=== PATIENT | female | born 1955 | race Caucasian/White ===

== ENCOUNTER 2025-05-22 11:32 | Outpatient (AMB) | payer MEDICARE, MEDICAID, SELFPAY ==
--- NOTE | 2025-05-22 11:34 | MHC.PC.OV ---
Vital Signs 05/22/25 11:43 Height 5 ft 5 in Weight 135 lb 6 oz BMI 22.5 BP 132/74 Blood Pressure Location Lt brachial Position Sitting Respiration 12 Pulse 72 Pulse Source Pulse Oximeter Temp 97.2 F Temp Source Oral Pulse Oximetry (%) 96 Oxygen Delivery Method Room Air Intake Visit Reasons: Asthma/Arthritis Intake Note: New patient to establish care. Patient is needs referral. Network Operations Technician Required: No Allergies tiotropium (From Spiriva) Adverse Reaction (Mild, Verified 05/22/25 11:51) GERD Medication List - Last Reconciled 05/22/25 by Sondra De La Fuente, [facility]- acyclovir 400 mg PO Q6H PRN albuterol sulfate 90 mcg/actuation inhalation budesonide-formoterol 160-4.5 mcg/actuation (Symbicort) 2 puffs inhalation BID meloxicam 7.5 mg PO DAILY omeprazole 20 mg PO DAILY Tobacco use date assessed: 05/22/25 Fall risk assessment: 2 + Falls in past year Last assessed Fall Risk: 05/22/25 Dental Screening Dental Screen Date: 05/22/25 Did you have a dental visit in the last 12 months?: Yes Did you have a dental problem in the last 6 months where you did not have access to dental care?: No Was dental information given to patient?: Patient has dentist HPI HPI Comments History of Present Illness Details 70 y/o F with OA, copd, former smoker, menopause, chronic GERD, MDD, AXEL SurgHx: FHx: 3 children healthy. SocHx: Lives byself. Has a car. Health Maintenance: See scanned preventative medicine assessment with personalized health plan and screening schedule. Colon: Mammo DEXA PAP Vaccines: tdap 2019 AAA screen EKG: [place] of Care: Pulm GI History of Present Illness - The patient is a 70-year-old female presenting to establish care and manage her chronic conditions, including COPD and osteoarthritis. - Previous PCP: [place] records pending - Longstanding COPD: require daily Symbicort and albuterol. Spiriva stopped due to GERD exacerbation. COPD exac, seen at [facility] 1 mo ago. HAs been w/o inhalers. - Reports chronic cough for 20 years attributed to COPD. - GERD well-controlled by omeprazole; history suggests ?? Naylor's esophagus. - Six-month history of breast pain, no skin changes or drainage. Last mammogram several years ago. Denies fhx of breast ca. - Osteoarthritis pain in hands and multiple joints, persists with meloxicam; brace use frequent to help wrist/hand pain - Anxiety and depression, scored positive on respective scales. Denies si/hi. counseling in past; declined meds or counseling today. - Periodic herpes simplex outbreaks managed with acyclovir. - Former smoker Review of Systems - Respiratory: Reports chronic cough, difficulty breathing, previous positive TB test. - Gastrointestinal: Reports GERD symptoms, not well controlled by omeprazole. - Musculoskeletal: Reports joint pain, primarily in hands, swelling. - Psychiatric: Reports anxiety and depression. - Integumentary/Breast: Reports breast pain, denies skin changes or drainage. - Reproductive: Denies family history of breast cancer, unknown paternal history. - Neurological: Denies changes in memory or cognition. - Skin: Reports herpes simplex outbreaks. - Social: Reports previous smoking history. Physical Exam General: Well developed, well nourished, in no acute distress. Appears stated age. Head: Normocephalic, atraumatic. Eyes: Pupils are equal, round and reactive to light and accommodation. Conjunctivae are clear. Vision grossly normal. Lungs: Diminished air flow noted, dry cough, no distress Heart: Regular rate and rhythm. No murmurs, click, rubs or gallops are noted. Pulses: Peripheral pulses are equal and palpable bilaterally. Extremities: No clubbing, cyanosis nor edema is noted. Psych: Mood and affect appropriate, though patient reports anxiety and depression. Results Pending Discussion Notes I discussed with the patient her current health issues and potential management strategies. We went over her needs for effective control of COPD, noting her difficulty with Spiriva due to digestive side effects. We discussed a potential therapeutic option, Trelegy, to simplify her treatment to one inhaler howveer this was denied by insurance. Therefore will prescribe Incruse + Symbicort and Albuterol. We reviewed her osteoarthritis needing better management, referral to rheumatology,ok to cont therapy with meloxicam. Anxiety and depression were noted, but she declined additional counseling services at this time. Diagnostic mammogram was recommended due to breast pain history, with potential for further imaging pending results. I recommended follow-up appointments to address medication refills and further management, as well as referrals for GI and pulmonology. Patient was given time to ask questions. All questions were answered to their satisfaction. Assessment and Plan 1. Chronic Obstructive Pulmonary Disease (COPD) - Trelegy denied - Continue Symbicort, albuterol, start incruse - Refer to pulmonology; former smoker, consider lung ca screen. 2. Gastroesophageal Reflux Disease (GERD) - Continue omeprazole - Refer to Gastroenterology ?? barretts 4. Osteoarthritis - Refer to rheumatology - cont meloxicam 5. Breast Pain bilat - Schedule diagnostic mammogram - Monitor symptoms 6. Anxiety and Depression - Screening positive, declined intervention 7. Herpes Simplex - Prescribe acyclovir PRN Check baselie labs today, get records from previous PCP RTO 4-6 weeks to fu on cOPD management and for sAWV. Patient Instructions - Continue using prescribed inhalers daily for COPD and asthma. - Take omeprazole as directed for GERD and monitor symptoms. - Schedule and attend mammogram to check for breast health. - Use meloxicam for pain management in osteoarthritis; consider wearing brace if needed. - Take acyclovir as prescribed for herpes outbreaks. - Follow referral to Gastroenterology and pulmonology when contacted. - Discuss therapy with a work measurement engineer if referred. - Aim to attend follow-up appointment for overall health assessment. - Seek medical help if breathing or other symptoms worsen. Consent Patient was informed and verbally consented to the use of an ambient scribe for clinic note documentation during this visit. Total time spent caring for the patient today was 45 minutes. This includes time spent before the visit reviewing the chart, time spent during the visit, and time spent after the visit on documentation, reviewing laboratory results, diagnostic imaging, medications, performing a medically necessary evaluation, counseling on diagnoses, care coordination, ordering appropriate tests, ordering appropriate medications, review of tests performed by other providers, reporting test results with the patient, communication with other healthcare providers. [facility] Medical History (Updated 05/22/25 @ 12:16 by SAUL Polanco) Anxiety Arthritis Asthma COPD (chronic obstructive pulmonary disease) Diverticulitis Eczema Edema GERD (gastroesophageal reflux disease) Hx of mammogram (~2022) Memory loss No pertinent family history Psoriasis Swelling Surgical History (Updated 05/22/25 @ 11:49 by Anna Redman MA) H/O: hysterectomy History of appendectomy Social History (Updated 05/22/25 @ 11:42 by Anna Redman MA) Household Members: None Both parents involved: No Caregiver staying overnight: No Housing: Apartment Are you a primary director of home care hospice to a significant other at home: No Do you presently have visiting nurse or other home services: No 75 years or older and lives alone: No Alcohol intake: current Alcohol intake frequency: a few times a month Patient Tobacco Use Status: Never used Tobacco e-Cigarette/Vaping Use: Never Used Second Hand Smoke Exposure: No Substance Use Type: Marijuana Current occupational status: retired Cognitive needs: Yes Hearing needs: No Vision needs: Yes (wear glasses) Questionnaire PHQ-9 Over the last 2 weeks, how often have you been bothered by any of the following problems? 1. Little interest or pleasure in doing things: nearly every day 2. Feeling down, depressed, or hopeless: not at all 3. Trouble falling or staying asleep, or sleeping too much: nearly every day 4. Feeling tired or having little energy: nearly every day 5. Poor appetite or overeating: not at all 6. Feeling bad about yourself - or that you are a failure or have let yourself or your family down: not at all 7. Trouble concentrating on things, such as reading the newspaper or watching television: not at all 8. Moving or speaking so slowly that other people could have noticed. Or the opposite - being so fidgety or restless that you have been moving around a lot more than usual: not at all 9. Thoughts that you would be better off or of hurting yourself in some way: not at all Total score: 9 Depression Screening Interpretation: Positive Depression Screening Follow-up: Existing condition and Declines treatment Depression Screening Done: Yes 26062 - PHQ-9 Billing: Patient declined-do not bill Source: Developed by Drs. Jose Walter, Elizabeth Mina, Michael Jones and colleagues, with an educational rissa from [employer]. Thrive Questionnaire Date Thrive assessed: 05/22/25 I am a: Patient What is your living situation today?: I have a steady place to live Within the past 12 months, did the food you bought not last and you didn't have the money to get more?: Never true Within the past 12 months, did you worry whether your food would run out before you got money to buy more?: Never true Do you have trouble paying for medicines?: No Do you have trouble getting transportation to medical appointments?: No Do you have trouble paying your heating and electricity bill?: No Do you have trouble taking care of your child, family member or friend?: No Do you have trouble with day-to-day activities such as bathing, preparing meals, shopping, managing finances, etc.?: No Are you currently unemployed and looking for a job?: No Are you interested in more education?: No Please select the resources that you would like help with: None Currently or been in a relationship where the following occur: No concerns reported THRIVE Score: 0 AUDIT C Alcohol Use Questionnaire (AUDIT-C) 1. How often do you have a drink containing alcohol?: 2-3 times a week 2. How many drinks containing alcohol do you have on a typical day when you are drinking?: 1 or 2 3. How often do you have six or more drinks on one occasion?: Never Total Score: 3 Score Reviewed/Action Taken: Yes AXEL-7 AMB Questionnaire AXEL-7 Date AXEL - 7 assessed: 05/22/25 Feeling nervous, anxious, or on edge: 1 = Several days Not being able to stop or control worryin = Nearly every day Worrying too much about different things: 1 = Several days Trouble relaxin = Several days Being so restless that it is hard to sit still: 1 = Several days Becoming easily annoyed or irritable: 3 = Nearly every day Feeling afraid as if something awful might happen: 2 = More than half the days Total AXEL-7 score (0-4 normal; 5-9 mild; 10-14 moderate; 15-21 severe): 12 Source: Developed by Drs. Jose Walter, Elizabeth Mina, Michael Jones and colleagues, with an educational rissa from [employer]. AXEL-7 Assessment Billing AXEL-7 Assessment Tool: AXEL-7 Assessment 61192 ACT Questionnaire In the past 4 weeks, how much of the time did your asthma keep you from getting as much done at work, school or at home?: None of the time During the past 4 weeks, how often have you had shortness of breath?: Not at all During the past 4 weeks, how often did your asthma symptoms wake you up at night or earlier than usual in the morning?: Not at all During the past 4 weeks, how often have you had to use your rescue inhaler or nebulizer medication?: Not at all How would you rate your asthma control during the past 4 weeks?: Completely controlled ACT Interpretation: Negative Score: 25 Physical exam (Primary Care) Vital Signs: Last Vital Signs Temp 97.2 F 05/22/25 11:43 Pulse 72 05/22/25 11:43 Resp 12 05/22/25 11:43 BP 132/74 05/22/25 11:43 Pulse Ox 96 05/22/25 11:43 Oxygen Delivery Method Room Air 05/22/25 11:43 BMI result Body Mass Index 22.5 Tobacco/Smoking Status: Tobacco use Status Tobacco use date assessed 05/22/25 05/22/25 11:40 Patient Tobacco Use Status Never used Tobacco 05/22/25 11:42 e-Cigarette/Vaping Use Never Used 05/22/25 11:42 PHQ-9: PHQ-9 Score PHQ-9: Total score 9 05/22/25 11:40 Depression Screening Interpretation: Positive Depression Screening Follow-up: Existing condition and Declines treatment Thrive Assessment: Date of Thrive Assessment Date Thrive assessed 05/22/25 05/22/25 11:40 Currently or been in a relationship where the following occur: No concerns reported Coding Level of Care Code New Pt Level 4 (89756) Complex EM visit Add On G2211 Diagnoses Encounter to establish care with new provider Z76.89 Former smoker Z87.891 Panlobular emphysema J43.1 COPD type: emphysema Emphysema type: panlobular Polyarthralgia M25.50 Mastalgia in female N64.4 Chronic GERD K21.9 Laboratory exam ordered as part of routine general medical examination Z00.00 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 Additional Codes Asthma Control Questionnaire - ACT Interpretation: Negative ([id number]) AXEL-7 Assessment Billing - AXEL-7 Assessment Tool: AXEL-7 Assessment 83034 ([id number]) Assessment & Plan Assessment & Plan (1) Encounter to establish care with new provider: Code(s): Z76.89 - Persons encountering health services in other specified circumstances (2) Former smoker: Code(s): Z87.891 - Personal history of nicotine dependence Category: Medical (3) COPD (chronic obstructive pulmonary disease): Code(s): J44.9 - Chronic obstructive pulmonary disease, unspecified Category: Medical Qualifiers: COPD type: emphysema Emphysema type: panlobular Qualified Code(s): J43.1 - Panlobular emphysema (4) Polyarthralgia: Code(s): M25.50 - Pain in unspecified joint Category: Medical (5) Mastalgia in female: Code(s): N64.4 - Mastodynia Category: Medical (6) Chronic GERD: Code(s): K21.9 - Gastro-esophageal reflux disease without esophagitis Category: Medical (7) Laboratory exam ordered as part of routine general medical examination: Code(s): Z00.00 - Encounter for general adult medical examination without abnormal findings Category: Medical (8) HSV-2 infection: Code(s): B00.9 - Herpesviral infection, unspecified Category: Medical Plan , Orders: Orders Complete Blood Count no Diff Today Z00.00 - Encounter for general adult medical examination without abnormal findings Lipid Panel Today Z00.00 - Encounter for general adult medical examination without abnormal findings Vitamin D 25-OH Total Today Z00.00 - Encounter for general adult medical examination without abnormal findings Hepatitis A,B,C Profile Today Z00.00 - Encounter for general adult medical examination without abnormal findings HIV Ab/Ag Today Z00.00 - Encounter for general adult medical examination without abnormal findings MM tomosynthesis diagnostic BI Today N64.4 - Mastodynia Comprehensive Met. Panel Today Z00.00 - Encounter for general adult medical examination without abnormal findings Microalbumin, Random (w Creat) Today Z00.00 - Encounter for general adult medical examination without abnormal findings TSH reflex Free T4 Today Z00.00 - Encounter for general adult medical examination without abnormal findings Vitamin B12 and Folate Today Z00.00 - Encounter for general adult medical examination without abnormal findings Referrals Pulmonology Referral J44.9 - Chronic obstructive pulmonary disease, unspecified, Z87.891 - Personal history of nicotine dependence Rheumatology Referral M25.50 - Pain in unspecified joint Gastroenterology Referral K21.9 - Gastro-esophageal reflux disease without esophagitis, Z12.11 - Encounter for screening for malignant neoplasm of colon Medications: New budesonide-formoterol 160-4.5 mcg/actuation (Symbicort) 2 puffs inhalation BID 10.2 grams 12RF omeprazole 20 mg PO DAILY 90 caps 2RF umeclidinium 62.5 mcg/actuation (Incruse Ellipta) 1 inh inhalation BEDTIME 30 ea 12RF meloxicam 7.5 mg PO DAILY 90 tabs 2RF Changed From albuterol sulfate 90 mcg/actuation inhalation To albuterol sulfate 90 mcg/actuation 2 inhalations inhalation Q6H 6.7 grams 2RF From acyclovir 400 mg PO Q6H PRN To acyclovir 400 mg PO Q6H PRN 40 tabs 1RF outbreak 10 days Patient Instructions: Walk-In Care (Urgent Care): We Make it Easy Walk-in for urgent medical issues such as: ? Seasonal Allergies ? Insect Bites ? Cough ? Diarrhea ? Acute Asthma Attacks ? Back, Knee or Joint Pain ? Ear Infection ? Fever without a Rash ? Headaches ? Nausea ? [place] [facility], Rash or Skin Irritation ? Sore Throat ? Sports Physicals ? Vomiting Most insurances are accepted. Patients do not need to be part of the [facility] to seek care at the walk-in clinic. Locations [facility] , [place] [address] ? [phone] [facility] Walk-In Care in [place] provides services to ages 18 and over. Open Monday-Monday: 7 a.m. to 5 p.m. and Monday: 9 a.m. to 3 p.m.* *Hours may vary due to staffing availability. To confirm Walk-In Care hours in [place], please call [phone]. [address] [place] [address] ? [phone] [facility] Walk-In Care in [place] provides services to ages 12 and over. Open Monday-Monday: 8 a.m. to 5 p.m. Hours may vary due to staffing availability. To confirm Walk-In Care hours in [place], please call [phone]. LABORATORY SERVICES: [facility] ? Primary Location [address] [place] [address] Monday through Monday 6:00 AM ? 5:00 PM Monday 7:00 AM ? 11:00 AM* [phone] The [facility] is centrally located near the front entrance of the [facility] for easy outpatient access. Convenient parking is provided for outpatients. *Hours may vary due to staffing availability. To confirm Laboratory hours for any location, please call [phone]. Offsite Location For your convenience, we offer offsite laboratory draw stations at the following locations: [address] [facility], [place] ? [facility] [address], [address], [place] Monday through Monday 7:30 AM ? 1:00 PM* [phone] *Hours may vary due to staffing availability. To confirm Laboratory hours for any location, please call [phone]. [place] ? [facility] [address] [facility], [place] Monday through Monday 6:00 AM ? 3:30 PM* Monday 6:30 AM ? 3 PM* [phone] *Hours may vary due to staffing availability. To confirm Laboratory hours for any location, please call [phone] [place] [address] Monday through Monday 7:30 AM ? 4:00 PM* [phone] *Hours may vary due to staffing availability. To confirm Laboratory hours for any location, please call [phone] [place] [address] Monday through 9:00 AM ? 4:00 PM* *Hours may vary due to staffing availability. To confirm Laboratory hours for any location, please call [phone]. Appointments are not necessary. Walk-ins are welcome. Like all the departments throughout the [place], our Lab undergoes frequent reviews to ensure the quality and accuracy of test results, and our staff takes special pride in its status as a nationally accredited facility. Patient Portal: [facility] ONE PATIENT. ONE RECORD. BETTER CARE. [facility] has a fully integrated, cutting-edge mobile electronic health information system that has revolutionized the way we care for our patients and manage our organization. This system improves communication and coordination enabling us to provide safe, higher-quality care, and an overall positive experience for staff and patients. Our first priority, as always, is to deliver the highest quality care possible. The system is running in the background supporting that priority. This portal is for all [facility] services and practices. If you are experiencing any technical difficulties with enrolling or logging into the Patient Portal please complete the [facility] Patient Portal Technical Support Form. [facility] now offers a new secure on-line interactive tool for patients to review their health information ? ?Patient Portal. This interactive web portal will enable patients and their families to take an active role in their care by providing easy, secure access to their health information via the internet. The Patient Portal provides patients with instant access to their health information, including laboratory results, medications, allergies, demographic information, visit history, and more. In addition to managing their own care, parents and health care proxies with authorized consent will appreciate the ability to access the records of those individuals for whom they provide care. Please note: if you wish to gain access (Proxy) to another patient?s portal, you will be required to come to the Medical Records Department in person at [facility]. Both the patient giving proxy access and the proxy will need to provide photo identification and complete the appropriate authorization. The Patient Portal also allows track their appointments online. The [facility] Patient Portal also saves patients time by allowing them to submit updates to their demographic and contact information prior to their visits. Portal email notifications will also alert patients to any new activity on their portal, such as test results and new appointments. In order to initially enroll in the [facility] Patient Portal, you will need to enter some required information including the following: your [facility] Medical Record number your personal home email address name date of Please note: In order to enroll in the [facility] Patient Portal, we need to have your email address on file in your electronic medical record. ?The email address needs to be specific for one person (yourself) in order for your Portal enrollment to be successful. ?You can update your email address in person with our Registration staff when you are registering for a hospital visit. ?Otherwise, you will need to come to the Health Information Management (Medical Records) Department at [facility]. ?We are open from Monday ? Monday from 7:30 a.m. ? 4:30 p.m. ?You will be required to present a photo id. Once you have successfully enrolled in the Patient Portal, you will receive a one-time user id and password for the Portal, sent to your email address. ?This will allow you to log into the Patient Portal within 99 hrs and reset your own logon id and password, and define personal security questions. ?Once your permanent login and password have been set, you can log into the [facility] Patient Portal at any time via the blue button above or from the Portal Logon button on any page of the [facility] website. [facility] encourage all of our patients to enroll in Patient Portal as it presents a valuable opportunity for patients and their families to actively participate in their care and stay healthy Welcome to [facility]. ?We look forward to working with you.
[2025-05-22 11:43] VITALS: BP 132/74; PULSE 72; RESP 12; TEMP 36.2; O2SAT 96; BMI 22.5
--- OUTSIDE RECORDS SUMMARY | 2025-05-22 13:15 | XMS_ITS | Clinical Summary ---
Author Organization [employer] Address [address] [place] [address] 7[address] [place] [address] Care Team Providers Care Shirt Operator Name Role Phone Ann Marie Gallego Unavailable Unavailable Allergies No known active allergies Medications meloxicam (Mobic) 7.5 MG tablet Take 1 tablet by mouth Once per day. 10/30/2024 Active omeprazole (PriLOSEC) [address] capsule Take 20 mg by mouth Once per day. Active Active Problems Problem Noted Date Diagnosed Date Affective psychosis, bipolar 12/25/2024 Chronic obstructive pulmonary disease 12/25/2024 Dissociative amnesia 12/25/2024 Gastroesophageal reflux disease 12/25/2024 Combined forms of age-related cataract of both e yes 12/25/2024 Obstructive sleep apnea of adult 12/25/2024 PTSD (post-traumatic stress disorder) 12/25/2024 Rheumatoid arthritis involving multiple sites Social History Tobacco Use Types Packs/Day Years Used Date Smoking Tobacco: Former Cigarettes Smokeless Tobacco: Never Tobacco Cessation:Counseling Given: Not Answered Alcohol Use Standard Drinks/Week Comments Never 0 (1 standard drink = 0.6 oz pur e alcohol) Comments Unknown Sex and Gender Information Value Date Recorded Sex Assigned at Female 12/03/2024 10:16 AM EDT Legal Sex Female 8:38 PM EDT Gender Identity Female 12/03/2024 10:16 AM EDT Sexual Orientation Something else 12/03/2024 10 :16 AM EDT Last Filed Vital Signs Vital Sign Reading Time Taken Comments Blood Pressure 120/80 12/25/2024 9:31 AM EDT Pulse - - Temperature 36.1 C (97 F) 12/25/2024 9:31 AM EDT Respiratory Rate - - Oxygen Saturation - - Inhaled Oxygen Concentration - - Weight - - Height - - Body Mass Index - - Plan of Treatment Upcoming Encounters Date Type Department Care Team (Late st Contact Info) Description 05/28/2025 10:10 AM EDT Office Visit [facility] DENTAL [address] [place] [address] Binh Childress Jr., DMD [address] [place] [address] 06/10/2025 10:10 AM EDT Office Visit [facility] DENTAL [address] [place] [address] Belen Guardado Health Maintenance Due Date Last Done Comments CT Colonography 1957 Colonoscopy 1957 Colorectal Cancer Screening 1957 Depression Screening 1957 FIT DNA/Cologuard 1957 FIT 1957 FOBT 1957 SDOH Screening 1957 Sigmoidoscopy 1957 Alcohol/Substance Use Screening 1969 Hepatitis C Screening 1975 Zoster Vaccines (1 of 2) 2007 RSV Patients and Patients Aged 60 years or older (1 - Risk 60-74 years 1-dose series) 2017 Pneumococcal Vaccine: 50+ Years (2 of 2 - PCV) 09/27/2018 09/27/2017 Mammogram 03/06/2021 03/06/2019 COVID-19 Vaccine ( - season) 2025 Influenza Vaccine (#1) 2025 8, 07/06/2017, 07/05/2017, Additional history exists Dental Oral Exam 06/06/2025 12/03/2024 Dental Prophylaxis 06/06/2025 12/03/2024 Dental X-Ray: Bitewings 12/04/2025 12/03/2024 Tobacco Screening 12/25/2025 12/25/2024 Dental X-Ray: Full Mouth 12/05/2027 12/03/2024 DTaP/Tdap/Td Vaccines (2 - Td or Tdap) 05/14/2029 05/14/2019 HIB Vaccines Aged Out No longer eligi ble based on patient's age to complete this topic HPV Vaccines Aged Out No longer eligi ble based on patient's age to complete this topic Hepatitis A Vaccines Aged Out No long er eligible based on patient's age to complete this topic Hepatitis B Vaccines Aged Out No long er eligible based on patient's age to complete this topic IPV Vaccines Aged Out No longer eligi ble based on patient's age to complete this topic Meningococcal B Vaccine Aged Out No l onger eligible based on patient's age to complete this topic Meningococcal Vaccine Aged Out No kayla da eligible based on patient's age to complete this topic RSV under 20 months Aged Out No longe r eligible based on patient's age to complete this topic Rotavirus Vaccines Aged Out No longer eligible based on patient's age to complete this topic Procedures Procedure Name Priority Date/Time Associated Diagnosis Comments Full PROPHYLAXIS - ADULT Routine 12/03/2024 10:20 AM EDT INTRAORAL - COMPLETE SERIES OF RADIOGRAPHIC IMAGES Routine 12/03/2024 10:20 AM EDT PERIODIC ORAL EVALUATION - ESTABLISHED PATIENT Routine 12/03/2024 10:20 AM EDT MAMMOGRAM GENERIC Routine 03/06/2019 12: 00 AM EDT from Last 3 Months or Most Recently Relevant to Health Maintenance Results * MAMMOGRAM DIGITAL WINIFRED SCREENING: [facility] (03/06/2019 12:00 AM EDT) Anatomical Region Laterality Modality Breast Bilateral Mammography 03/06/2019 Narrative 03/06/2019 12:00 AM EDT Refer to [facility] for result details Legacy Procedure: MAMMOGRAM DIGITAL WINIFRED SCREENING: [facility] Procedure Note Provider, Historical, - 01/12/2023 Refer to Fove for result details Legacy Procedure: MAMMOGRAM DIGITAL WINIFRED SCREENING: [facility] Historical Provider IMG BI PROCEDURES Final R esult from Last 3 Months or Most Recently Relevant to Health Maintenance Insurance [facility] DUAL COM[facility]TE [facility] MEDICAID STAND ADULT DENTAL - HSN FULL (MEDICAID) [facility] [place] [address] Care Teams Shirt Operator Relationship Specialty Start Date End Date Ann Marie Gallego [facility] Navigator 10/15/24
== END 2025-05-22 12:19 | disposition home or self-care (01) ==
LOC: HO.HMCFM 11:33
PROVIDERS: PCP Nurse Practitioner Family; Visit Provider Nurse Practitioner Family
DX: Z76.89 Persons encountering health services in other specified circumstances (principal); Z87.891 Personal history of nicotine dependence; J43.1 Panlobular emphysema; M25.50 Pain in unspecified joint; N64.4 Mastodynia; K21.9 Gastro-esophageal reflux disease without esophagitis; Z00.00 Encounter for general adult medical examination without abnormal findings; B00.9 Herpesviral infection, unspecified

== ENCOUNTER → 2025-05-22 11:32 | Outpatient (BNVA) | payer OTHER, SELFPAY | PROVIDERS: PCP Nurse Practitioner Family; Visit Provider Nurse Practitioner Family | DX: Z00.00 Encounter for general adult medical examination without abnormal findings (principal); J44.9 Chronic obstructive pulmonary disease, unspecified; K21.9 Gastro-esophageal reflux disease without esophagitis; R05.3 Chronic cough; F41.9 Anxiety disorder, unspecified; F32.A Depression, unspecified; N64.4 Mastodynia; B00.9 Herpesviral infection, unspecified; Z76.89 Persons encountering health services in other specified circumstances; Z87.891 Personal history of nicotine dependence; J43.1 Panlobular emphysema; M25.50 Pain in unspecified joint | CPT/HCPCS: 96127; 96160; 99202 ==

== ENCOUNTER 2025-06-13 11:58 | Outpatient (REF) | payer MEDICARE, SELFPAY ==
--- OUTSIDE RECORDS SUMMARY | 2025-06-13 13:44 | XMS_ITS | Clinical Summary ---
Author Organization [employer] Address [address] [facility] 7t [place] [address] Care Team Providers Care Ships Or Barges Loader Name Role Phone Ann Marie Gallego Unavailable [...] disorder) 12/25/2024 Rheumatoid arthritis involving multiple sites Encounters Date Type Department Care Team Description 06/03/2025 11:30 AM EDT Office Visit [facility] [address] [place] [address] Del Velasquez, OD PVD (posterior vitreous detachment), left eye (Primary Dx); Peripheral drusen of both eyes; Hypertensive retinopathy of both eyes 06/03/2025 Travel 05/28/2025 10:20 AM EDT Office Visit [facility] DENTAL [address] [place] [address] Binh Childress Jr., DMD from Last 3 Months Social History Tobacco Use Types Packs/Day Years [...] Sign Reading Time Taken Comments Blood Pressure 133/86 05/28/2025 10:14 AM EDT Pulse 82 05/28/2025 10:14 AM EDT Temperature 36.1 C (97 F) 12/25/2024 9:31 AM EDT Respiratory Rate - - Oxygen Saturation - - Inhaled Oxygen Concentration - - Weight - - Height - - Body Mass Index - - Plan of Treatment Upcoming Encounters Date Type Department Care Team (Late st Contact Info) Description 06/19/2025 9:20 AM EDT Office Visit [facility] DENT[facility] [address] [place] [address] Belen Guardado 06/25/2025 10:00 AM EDT Office Visit [facility] [address] [place] [address] Del Velasquez, OD [address] [place] [address] Health Maintenance Due Date Last Done Comments [...] Procedure Name Priority Date/Time Associated Diagnosis Comments FUNDUS PHOTOS - OS - LEFT EYE Routine 06/03/2025 PVD (posterior vitreous detachment), left eye Peripheral drusen of both eyes Hypertensive retinopathy of both eyes CASE PRESENTATION, DETAILED AND EXTENSIVE TREATMENT PLANNING Routine 05/28/2025 10:20 AM EDT 25 MIFL RESIN-BASED COMPOSITE - 4 OR MORE SURFACES (ANTERIOR) Routine 05/28/2025 10:20 AM EDT Full PROPHYLAXIS - ADULT Routine 12/03/2024 10:20 AM EDT INTRAORAL - COMPLETE SERIES OF RADIOGRAPHIC IMAGES Routine 12/03/2024 10:20 AM EDT PERIODIC ORAL EVALUATION - ESTABLISHED PATIENT Routine 12/03/2024 10:20 AM EDT MAMMOGRAM GENERIC Routine 03/06/2019 12: 00 AM EDT from Last 3 Months or Most Recently Relevant to Health Maintenance Results * (ABNORMAL) Fundus Photos - OS - Left Eye (06/03/2025) Del Velasquez OD OPHTH PHOTOGRAPHY Final Result * MAMMOGRAM DIGITAL WINIFRED SCREENING: [facility] (03/06/2019 12:00 AM EDT) Anatomical Region Laterality Modality Breast Bilateral Mammography 03/06/2019 Narrative 03/06/2019 12:00 AM EDT Refer to Fovea for result details Legacy Procedure: MAMMOGRAM [facility]ITAL [facility] Procedure Note Provider, Rolan, - 01/12/2023 Refer to Fovea for result details Legacy Procedure: MAMMOGRAM DIGITAL WINIFRED [facility]CREENING[facility] Historical Provider IMG BI PROCEDURES Final R esult from Last 3 Months or Most Recently Relevant to Health Maintenance Insurance [facility] DUAL COMPLETE [place]ENTAL[place]ICAID STAND ADULT DENTAL - HSN FULL (MEDICAID) [facility] DUAL COMPLETE [facility] STANDARD Care Teams Ships Or Barges Loader Relationship Specialty Start Date End Date Ann Marie Gallego [facility] Navigator 10/15/24 [address] [place] [address] Primary Care Provider 06/03/25
[2025-06-13 14:36] LABS: Hematocrit 39.6 % (37.0-47.0); Hemoglobin 13.1 g/dl (12.0-16.0); Mean Corpuscular HGB Conc 33.1 g/dl (31.0-35.0); Mean Corpuscular Hemoglobin 29.6 pg (27.0-33.0); Mean Corpuscular Volume 89.6 fL (80.0-98.0); NRBC Abs Auto 0.000 X10*3/uL (0.0-0.012); NRBC Pct Auto 0.0 /100WBC (0.0-0.2); Platelet Count 302 X10*3/uL (160-400); Red Blood Count 4.42 X10*6/uL (4.20-5.50); White Blood Count 5.3 X10*3/uL (4.8-10.8)
[2025-06-13 15:07] LABS: Alanine Aminotransferase 19 U/L (0-31); Albumin Level 4.5 g/dL (3.5-5.0); Alkaline Phosphatase 61 U/L (39-117); Anion Gap 11 (12-20); Aspartate Amino Transferase 22 U/L (5-31); Blood Urea Nitrogen 13 mg/dL (9-16); Calcium 9.0 mg/dL (8.4-10.2); Carbon Dioxide 27 mmol/L (22-29); Chloride 107 mmol/L (96-108); Cholesterol 192 mg/dL (<200); Estimated Glomerular Filt Rate > 60; HDL Cholesterol 70 mg/dL (>40); Potassium 3.5 mmol/L (3.3-5.1); Sodium 141 mmol/L (135-145); Total Protein 7.1 g/dL (6.5-8.0); Triglycerides 62 mg/dL (<150)
[2025-06-13 15:11] LABS: Microalbum/Creatinine Ratio Ur 40.5 ug/mg cr (<30)
[2025-06-13 15:20] LABS: Folate 12.9 ng/mL (> or = 4.0); Vitamin B12 814 pg/mL (200-900)
[2025-06-16 04:22] LABS: HBS Num1 136.63 mIU/mL (0-7.99); HBc Num1 0.16 S/CO (0.00-0.79); HBsAGNum1 0.34 S/CO (0.00-0.99); HIV Num 1 0.04 S/CO (0.00-0.99); Hepatitis A Antibody IgM 0.13 Index (0-0.79); Hepatitis B Surface Antigen Negative (Negative); ~HepC Num1 0.12 S/CO (0.00-0.79); ~Hepatitis A Antibody IgM Nonreactive (Nonreactive); ~Hepatitis B Surface Antibody REACTIVE (Nonreactive); ~Hepatitis C Antibody Nonreactive (Nonreactive)
== END 2025-06-13 11:59 | disposition home or self-care (01) ==
LOC: HO.WFDLDS 11:58
PROVIDERS: Visit Provider Nurse Practitioner Family
DX: Z00.00 Encounter for general adult medical examination without abnormal findings (principal); Z11.4 Encounter for screening for human immunodeficiency virus [HIV]; Z13.29 Encounter for screening for other suspected endocrine disorder; Z13.6 Encounter for screening for cardiovascular disorders; Z13.21 Encounter for screening for nutritional disorder
CPT/HCPCS: 36415; 80053; 80061; 82043; 82306; 82570; 82607; 82746; 84443; 85027; 86704; 86706; 86709; 86803; 87340; 87389

== ENCOUNTER 2025-06-24 11:23 | Outpatient (REF) | payer MEDICARE, SELFPAY ==
--- OUTSIDE RECORDS SUMMARY | 2025-06-19 09:20 | XMS_ITS | Encounter Summary ---
Author Organization [employer] Address [address] [place] [address] [address]t h Floor [place] [id number] Care Team Providers Care Host Coordinator Name Role Phone Ann Marie Gallego Unavailable Unavailable Reason for Visit * Reason Comments Routine Cleaning Dental Exam Encounter Details Date Type Department Care Team (Late st Contact Info) Description 06/19/2025 9:20 AM EDT Office Visit [facility] DENTAL [address] [place] [address] Belen Guardado Encounter for dental examination (Primary Dx); Disturbances of tooth formation Social History Tobacco Use Types Packs/Day Years Used Date Smoking Tobacco: Former Cigarettes Smokeless Tobacco: Never Alcohol Use Standard Drinks/Week Comments Never 0 (1 standard drink = 0.6 oz pur e alcohol) Comments Unknown Sex and Gender Information Value Date Recorded Sex Assigned at Female 12/03/2024 10:16 AM EDT Legal Sex Female 8:38 PM EDT Gender Identity Female 12/03/2024 10:16 AM EDT Sexual Orientation Something else 12/03/2024 10 :16 AM EDT documented as of this encounter Last Filed Vital Signs Vital Sign Reading Time Taken Comments Blood Pressure 138/89 06/19/2025 9:44 AM EDT Pulse 79 06/19/2025 9:44 AM EDT Temperature - - Respiratory Rate - - Oxygen Saturation - - Inhaled Oxygen Concentration - - Weight - - Height - - Body Mass Index - - documented in this encounter Progress Notes * Belen Guardado - 06/19/2025 9:20 AM EDT Prophy + YUVAL Subjective: Chief Complaint (CC):--routine cleaning Medical History: Reviewed, Objective: Oral Hygiene Status: Fair Gingival Description: pink inflamed, with mild bleeding on probing Oral Cancer Exam: within normal limits Periodontal Diagnosis: STAGE II grade 2 chronic periodontitis Calculus: Moderate Supra / Subgingival Radiographs Taken: Type -none Caries/Radiographic Findings: as on the chart Vital Signs: BP-138/89 HR-79 Assessment: Risk Factors: None Plan / Treatment Provided: Hygiene Treatment: Full-mouth prophylaxis performed using ultrasonic and hand instruments Teeth polished with Pumice Interdental flossing completed Oral hygiene instructions given and reinforced Brushing technique, and flossing Evaluation/Treatment Planning (Dentist): Exam done by Dr. Isaac Defective baptism Tooth # 29 Rationale: tooth # 29 crown- Heavily restored tooth with recurrent caries and defective DOL composite rest. 4+ surfaces involved. Adjacent and opposing teeth are present. Tooth is not periodontally compromised. Discussed findings with patient Recommended: Anabaptist and crown tooth # 29 Treatment options explained Recommendations: Anabaptist and crown Tooth #29 after insurance approval Follow-up in 6 months Patient Tolerance: Good Post-Treatment Instructions Given: Yes Patient did great Belen Guardado documented in this encounter Plan of Treatment Upcoming Encounters Date Type Department Care Team (Late st Contact Info) Description 06/25/2025 10:00 AM EDT Office Visit [facility] OPTOMETRY [address] [place] [address] Del Velasquez OD [address] [place] [address] 12/24/2025 9:20 AM EDT Office Visit [facility] DENTAL [address] [place] [address] Belen Guardado Scheduled Orders Name Type Priority Associated Diagnoses Orde r Schedule 29 29 CROWN - PORCELAIN/CERAMIC Dental Routine 1 Occurrences starting 06/19/2025 29 29 CORE BUILDUP, INCL ANY PINS WHEN REQ Dental Routine 1 Occurrences starting 06/19/2025 PROPHYLAXIS - ADULT Dental Routine 1 Occ urrences starting 06/19/2025 PERIODIC ORAL EVALUATION - ESTABLISHED PATIENT Dental Routine 1 Occurren vaishnavi starting 06/19/2025 documented as of this encounter Procedures Procedure Name Priority Date/Time Associated Diagnosis Comments Full PROPHYLAXIS - ADULT Routine 025 9:20 AM EDT PERIODIC ORAL EVALUATION - ESTABLISHED PATIENT Routine 06/19/2025 9:20 AM EDT ORAL HYGIENE INSTRUCTIONS Routine 2024 9:20 AM EDT CASE PRESENTATION, DETAILED AND EXTENSIVE TREATMENT PLANNING Routine 06/19/2025 9:20 AM EDT 29 MOD COMPOSITE FILLING Routine 025 12:00 AM EDT documented in this encounter Visit Diagnoses Diagnosis Encounter for dental examination- Primary Disturbances of tooth formation documented in this encounter Care Teams Host Coordinator Relationship Specialty Start Date End Date Abnerluis manuelCristoen [facility] Navigator 10/15/24 T[address]Y [address] [place] [address] Primary Care Provider 06/03/25 documented as of this encounter
--- NOTE | ~2025-06-24 | MM_ITS ---
EXAMINATION: MM DIAGNOSTIC DIGITAL BREAST TOMOSYNTHESIS, BILATERAL Bilateral Limited ultrasound. CLINICAL INFORMATION: Bilateral breast pain for 6 months. COMPARISON: Mammography: No prior imaging available for comparison at this time. TECHNIQUE: Digital breast mammography with tomosynthesis is performed in both the craniocaudal and mediolateral oblique views along with computer-aided detection (CAD). FINDINGS: There are scattered areas of fibroglandular density. Left: [place] marker in the upper outer breast at site of patient's pain without underlying abnormal finding. No suspicious calcifications masses or other abnormal findings. Targeted color Doppler ultrasound scanning in the upper outer quadrant area of patient's pain demonstrates normal follicular breast tissue. Right: [place] marker in the upper outer breast without underlying abnormal finding. No suspicious masses calcifications or other abnormal findings. Targeted color Doppler ultrasound scanning in the upper outer quadrant area of patient's pain demonstrates normal fibronodular breast tissue. Results are provided to the patient at time of visit by the technologist. MM/MM tomosynthesis diagnostic BI IMPRESSION: No mammographic or sonographic abnormal finding bilateral breasts to correlate with patient's bilateral areas of pain. Recommend clinical evaluation follow-up. ASSESSMENT: BI-RADS Category 1: Negative RECOMMENDATION: 1 year F/U This patient's information was entered into a reminder system with a target due date for their next mammogram. Electronically signed by: Ashley Romero DO 06/24/2025 03:01 PM EDT
--- NOTE | ~2025-06-24 | US_ITS ---
EXAMINATION: MM DIAGNOSTIC DIGITAL BREAST TOMOSYNTHESIS, BILATERAL Bilateral Limited ultrasound. CLINICAL INFORMATION: Bilateral breast pain for 6 months. COMPARISON: Mammography: No prior imaging available for comparison at this time. TECHNIQUE: Digital breast mammography with tomosynthesis is performed in both the craniocaudal and mediolateral oblique views along with computer-aided detection (CAD). FINDINGS: There are scattered areas of fibroglandular density. Left: [place] marker in the upper outer breast at site of patient's pain without underlying abnormal finding. No suspicious calcifications masses or other abnormal findings. Targeted color Doppler ultrasound scanning in the upper outer quadrant area of patient's pain demonstrates normal follicular breast tissue. Right: [place] marker in the upper outer breast without underlying abnormal finding. No suspicious masses calcifications or other abnormal findings. Targeted color Doppler ultrasound scanning in the upper outer quadrant area of patient's pain demonstrates normal fibronodular breast tissue. Results are provided to the patient at time of visit by the technologist. US/US Breast BI Limited Mamm Only IMPRESSION: No mammographic or sonographic abnormal finding bilateral breasts to correlate with patient's bilateral areas of pain. Recommend clinical evaluation follow-up. ASSESSMENT: BI-RADS Category 1: Negative RECOMMENDATION: 1 year F/U This patient's information was entered into a reminder system with a target due date for their next mammogram. Electronically signed by: Ashley Romero DO 06/24/2025 03:01 PM EDT
--- OUTSIDE RECORDS SUMMARY | 2025-06-24 14:21 | XMS_ITS | Clinical Summary ---
Author Organization [employer] Address [address] [facility] [address] [place] [address] Care Team Providers Care Train Gate Attendant Name Role Phone Ann Marie Gallego Unavailable Unavailable Allergies No known active allergies Medications meloxicam (Mobic) 7.5 MG tablet Take 1 tablet by mouth Once per day. 10/30/2024 Active omeprazole (PriLOSEC) [address] capsule Take 20 mg by mouth Once per day. Active Active Problems Problem Noted Date Diagnosed Date Affective psychosis, bipolar 12/25/2024 Chronic obstructive pulmonary disease 12/25/2024 Dissociative amnesia (CMS/HCC) 12/25/2024 Gastroesophageal reflux disease 12/25/2024 Combined forms of age-related cataract of both e yes 12/25/2024 Obstructive sleep apnea of adult 12/25/2024 PTSD (post-traumatic stress disorder) 12/25/2024 Rheumatoid arthritis involving multiple sites (C MS/HCC) 12/25/2024 Encounters Date Type Department Care Team Description 06/19/2025 9:20 AM EDT Office Visit [facility] DENTAL [address] [place] [address] Belen Guardado Encounter for dental examination (Primary Dx); Disturbances of tooth formation 06/03/2025 11:30 AM EDT Office Visit [facility] OPTOMETRY [address] [place] [address] Del Velasquez, OD PVD (posterior vitreous detachment), left eye (Primary Dx); Peripheral drusen of both eyes; Hypertensive retinopathy of both eyes 06/03/2025 Travel 05/28/2025 10:20 AM EDT Office Visit [facility] DENTAL [address] [place], [place] [phone] Binh Childress Jr., DMD from Last 3 [...] Pulse 79 06/19/2025 9:44 AM EDT Temperature 36.1 C (97 F) 12/25/2024 9:31 AM EDT Respiratory Rate - - Oxygen Saturation - - Inhaled Oxygen Concentration - - Weight - - Height - - Body Mass Index - - Plan of Treatment Upcoming Encounters Date Type Department Care Team (Late st Contact Info) Description 06/25/2025 10:00 AM EDT Office Visit [facility] OPTOMETRY [address] [place] [address] Del Velasquez, OD [address] [place] [address] 12/24/2025 9:20 AM EDT Office Visit [facility] DENTAL [address] [place] [address] Belen Guardado Health Maintenance Due Date Last [...] 09/27/2018 09/27/2017 Mammogram 03/06/2021 03/06/2019 COVID-19 Vaccine (1 - season) 2025 Influenza Vaccine (#1) 2025 8, 07/06/2017, 07/05/2017, Additional history exists Dental X-Ray: Bitewings 12/04/2025 12/03/2024 Dental Oral Exam 12/19/2025 06/19/2025, 12/03/2024 Dental Prophylaxis 12/19/2025 06/19/2025, 12/03/2024 Tobacco Screening 06/19/2026 06/19/2025 Dental X-Ray: Full Mouth 12/05/2027 12/03/2024 DTaP/Tdap/Td [...] Procedure Name Priority Date/Time Associated Diagnosis Comments CASE PRESENTATION, DETAILED AND EXTENSIVE TREATMENT PLANNING Routine 06/19/2025 9:20 AM EDT ORAL HYGIENE INSTRUCTIONS Routine 06/19/2025 9:20 AM EDT Full PROPHYLAXIS - ADULT Routine 06/19/2025 9:20 AM EDT PERIODIC ORAL EVALUATION - ESTABLISHED PATIENT Routine 06/19/2025 9:20 AM EDT 29 MOD COMPOSITE FILLING Routine 06/19/2025 12:00 AM EDT FUNDUS PHOTOS - OS - LEFT EYE Routine 06/03/2025 PVD (posterior vitreous detachment), left eye Peripheral drusen of both eyes Hypertensive retinopathy of both eyes CASE PRESENTATION, DETAILED AND EXTENSIVE TREATMENT PLANNING Routine 05/28/2025 10:20 AM EDT 25 MIFL RESIN-BASED COMPOSITE - 4 OR MORE SURFACES (ANTERIOR) Routine 05/28/2025 10:20 AM EDT INTRAORAL - COMPLETE SERIES OF RADIOGRAPHIC IMAGES Routine 12/03/2024 10:20 AM EDT MAMMOGRAM GENERIC Routine 03/06/2019 12: 00 AM EDT from Last 3 Months or Most Recently Relevant to Health Maintenance Results * (ABNORMAL) Fundus Photos - OS - Left Eye (06/03/2025) Del Velasquez OD OPHTH PHOTOGRAPHY Final Result * MAMMOGRAM DIGITAL WINIFRED [facility]CRE[facility]ING[facility] (03/06/2019 12:00 AM EDT) Anatomical Region Laterality Modality Breast Bilateral Mammography 03/06/2019 Narrative 03/06/2019 12:00 AM EDT Refer to Fovea for result details Legacy Procedure: MAMMOGRAM DIGITAL WINIFRED SCREENING: [facility] Procedure Note Provider, Rolan, - 01/12/2023 Refer to Fovea for result details Legacy Procedure: MAMMOGRAM DIGITAL WINIFRED SCREENING: [facility] Historical Provider MD ROLON BI PROCEDURES Final R esult from Last 3 Months or Most Recently Relevant to Health Maintenance Insurance [facility] DENTAL - HSN FULL (MEDICAID) [facility] DUAL COMPLETE [facility] [place] STAND[facility] Care Teams Train Gate Attendant Relationship Specialty Start Date End Date Ann Marie Gallego [facility] Navigator 10/15/24 [address] [place], [place] [id number] Primary Care Provider 06/03/25
== END 2025-06-24 11:24 | disposition home or self-care (01) ==
LOC: HO.MAMMO 11:23
PROVIDERS: PCP Nurse Practitioner Family; Visit Provider Nurse Practitioner Family
DX: N64.4 Mastodynia (principal)
CPT/HCPCS: 76642; 77062; 77066

== ENCOUNTER → 2025-06-24 11:30 | Outpatient (BNV) | payer MEDICARE, SELFPAY | PROVIDERS: PCP Nurse Practitioner Family; Visit Provider Internal Medicine | DX: N64.4 Mastodynia (principal) | CPT/HCPCS: 76642; 77066; G0279 ==

== ENCOUNTER 2025-07-07 13:49 | Outpatient (AMB) | payer MEDICARE, MEDICAID, SELFPAY ==
[2025-07-07 14:29] VITALS: BP 130/80; PULSE 78; RESP 20; TEMP 36.6; O2SAT 98; BMI 22.9
--- NOTE | 2025-07-07 14:32 | A.OFFVIS_ITS ---
Intake Vital Signs 3 07/07/25 14:29 Height 5 ft 5 in Weight 137 lb 8 oz BMI 22.9 BP 130/80 Blood Pressure Location Rt brachial Position Sitting Respiration 20 Pulse 78 Pulse Source Pulse Oximeter Temp 97.8 F Temp Source Oral Pulse Oximetry (%) 98 Oxygen Delivery Method Room Air Intake Visit Reasons: 4-6 weeks AWV 30 min Intake Note: patient is scheduled for AWV Triage Nurse Required: No Information Interpreted: clinical only Allergies tiotropium (From Spiriva) Adverse Reaction (Mild, Verified 07/07/25 14:33) GERD Medication List - Last Reconciled 07/07/25 by Sondra De La Fuente, [facility]- acyclovir 400 mg PO Q6H PRN 10 days albuterol sulfate 90 mcg/actuation 2 inhalations inhalation Q6H budesonide-formoterol 160-4.5 mcg/actuation (Symbicort) 2 puffs inhalation BID meloxicam 7.5 mg PO DAILY omeprazole 20 mg PO DAILY umeclidinium 62.5 mcg/actuation (Incruse Ellipta) 1 inh inhalation BEDTIME Is last menstrual period known: No Post menopausal: Yes Patient : No Do you need a note to return to daycare/school/sports/work: No HPI HPI Comments 2 History of Present Illness0 Details Here today for AWV. The Medicare Annual Wellness Visit (AWV) is a yearly appointment with a health professional to identify health risks and help reduce them and to create or update a personalized prevention plan. During a Medicare AWV, health professionals should also review any current opioid prescriptions, detect any cognitive impairment, and establish or update medical and family history. 70 y/o F with OA, copd, former smoker, m enopause, chronic GERD, MDD, AXEL, fhx colon ca (mom) SurgHx: Y FHx: 3 children healthy. SocHx: Lives byself. Has a car. Health Maintenance: See scanned preventative medicine assessment with personalized health plan and screening schedule. Colon: thinks done in the last 5 years, no sure. I never got her records from previous PCP . Mammo 06/2025 dx peter and us WNL DEXA ordered today PAP NA Vaccines: tdap 2019, Declined flu shot, shingles, pneumonia shot AAA screen: NA EKG: done today NSR A1c 5.6% today [place] of Care: Pulm GI Visual Acuity: reading glasses, exam 2024 Hearing Screening: has never had this tested; reports missing a lot Audio referral placed today ACP: does not have reviewed and provided blank forms today Dietary/Nutrition/Exercise Edu provided: Y During the course of the visit the patient was educated and counseled about appropriate screening and preventative services. Patient instructions were provided to the patient in written or electronic format. I have reviewed and verified the above information. History of Present Illness - The patient is a 70-year-old female fo r AWV - Previous PCP: [place] records n ever rec'd - Longstanding COPD: stopped taking all inhalers, states increased her BP. [place] [facility] [place] GERD well-controlled by omeprazole; h istory suggests ?? Huffman's esophagus. - Six-month history of breast pain, no s kin changes or drainage. Last mammogram several years ago. Denies fhx of breast ca. 06/2025 Mammo/US WNL - Osteoarthritis pain in hands and multi ple joints, persists with meloxicam; brace use frequent to help wrist/hand pain Taking APAP and Aleve. 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 - Former smoker - Eczema/Psoriasis - using otc steroids w/ limited relief. not active w/ derm Social History - Former smoker - Lives independently and manages own co oking, cleaning, and finances - Monitors blood pressure independently - Concern regarding hearing loss - History of exposure to environmental i rritants without protective equipment (e.g. working on a sailboat) Health Maintenance - Most recent mammogram was normal - Diabetes screening was normal - Elevated cholesterol levels noted: LDL 110 mg/dL but ^ HDL - Vitamin D levels normal - Urine micro/alb ^ indicates mild dehyd ration - Bone density scan recommended but not completed - Discussion of flu, shingles, and other vaccinations; patient declined - Pending referral for colonoscopy due t o family history of colorectal cancer - Referral for hearing assessment at [facility] hearing [facility] - Recent eye exam with new glasses - Recommendations to increase water inta ke Review of Systems - Musculoskeletal: Reports joint pain pa rticularly in hands; Denies improvement with meloxicam - Dermatologic: Reports chronic skin les ions on elbows; Denies resolution with moisturizers - Gastrointestinal: Reports history of G ERD; Denies recent exacerbation - Pulmonary: Denies current use of inhal ers due to prior blood pressure elevation - Cardiovascular: Reports high blood pre ssure linked to inhaler usage; Denies current intervention - Neurological: Concerns with hearing; N ever formally assessed - General: Reports back pain and stiffne ss primarily in the morning Physical Exam General: Well developed, well nourished, in no acute distress. Appears stated age. Head: Normocephalic, atraumatic. Eyes: Pupils are equal, round and reactive to light and accommodation. Conjunctivae are clear. Scleras nonicteric bilat. Vision grossly normal. Ears: TMs clear AU, EACS WNL Nose: Patent, without discharge. Neck: No carotid bruit bilat. Supple, no adenopathy or thyromegaly. Breast: Edu on SBE. Recent mammogram was negative or normal. Lungs: Dim throughout, Heart: Regular rate and rhythm. No murmurs, click, rubs or gallops are noted. EKG was normal. Abdomen: Bowel sounds present in all quadrants. The abdomen is soft, nontender, with no masses or organomegaly noted. No hernias are noted. : Deferred. Reviewed recommendations for routine [employer] DE[employer]MENT CHAIR. Pulses: Peripheral pulses are equal and palpable bilaterally. Extremities: No clubbing, cyanosis nor edema is noted. Neurologic: Gait and station normal. Cranial Nerves 2-12 intact. Motor strength grossly symmetrical and intact. No sensory loss. Balance normal. Skin: No rashes, ulcers, or lesions noted. Turgor is good. Skin color is good. Hair and nails are without abnormalities. Psych: Normal eye contact, affect and mood appropriate, and normal interactions. Patient is alert and appropriate to context. Anterior L lower leg Results reviewed. Discussion Notes I discussed with the patient her persistent joint pain and ineffective response to meloxicam, suggesting a switch to Celecoxib. We deliberated on her multiple skin lesions and recommended a dermatology consultation due to chronicity. For her back pain and concerns of possible osteoarthritis, I proposed a bone density scan, explaining its utility in assessing osteoporosis. Dehydration was noted in her labs, prompting a discussion on adequate hydration. Given her family history of colorectal cancer, a referral to Gastroenterology was advised. I provided education on alternative inhaler options due to blood pressure concerns she declined to use. The patient showed apprehension regarding vaccines, and she declined the flu and shingles vaccines. I referred her for hearing evaluation in light of reported difficulties and informed her of appointments to follow up for each referral made. Patient was given time to ask questions. All questions were answered to their satisfaction. Assessment and Plan 1. Chronic Obstructive Pulmonary Disease (COPD) - Refer to pulmonology; former smoker, c onsider lung ca screen. 2. Gastroesophageal Reflux Disease (GERD )/Fhx colon ca (Mom) - Continue omeprazole - Refer to Gastroenterology ?? huffman s 3. Eczema/Psoriasis Refer to [facility] 4. Osteoarthritis of multiple sites - Refer to rheumatology appt 05/2026 - stop meloxicam; cont apap er and start celebrex 200mg BID prn - [place] [facility] pain and swellin g in hands 5. refer for hearing exam 6. Herpes Simplex - cont acyclovir PRN Patient Instructions - Start Celecoxib twice a day as needed for pain. - Keep using Tylenol for extra relief. - Drink lots of water every day to stay hydrated. - You have a dermatology and hand doctor referral. Wait for them to call you. - You're set for a hearing test. Keep an ear out for their call. - You need to see Gastroenterology about your family colon cancer history. - Follow up with pulmonology to talk abo ut your COPD care and discuss lung cancer screening. - RTO 1 year sAWV sooner PRN Consent Patient was informed and verbally consented to the use of an ambient scribe for clinic note documentation during this visit. An additional 30 minutes was spent addressing the problem(s) noted at todays visit. This includes time spent before the visit reviewing the chart, time spent during the visit, and time spent after the visit on documentation reviewing laboratory results, diagnostic imaging, medications, performing a medically necessary evaluation, counseling on diagnoses, care coordination, ordering appropriate tests, ordering appropriate medications, review of tests performed by other providers, reporting test results with the patient, communication with other healthcare providers. [facility] Medical History (Updated 07/07/25 @ 15:32 by Sondra De La Fuente, YISSEL-) Anxiety Arthritis Asthma COPD (chronic obstructive pulmonary disease) Diverticulitis Eczema Edema GERD (gastroesophageal reflux disease) Hx of mammogram (~2022) Memory loss No pertinent family history Psoriasis Swelling Surgical History H/O: hysterectomy History of appendectomy Social History Household Members: None Both parents involved: No Caregiver staying overnight: No Housing: Apartment Are you a primary home care and home health aides teacher to a significant other at home: No Do you presently have visiting nurse or other home services: No 75 years or older and lives alone: No Alcohol intake: current Alcohol intake frequency: a few times a month Patient Tobacco Use Status: Never used Tobacco e-Cigarette/Vaping Use: Never Used Second Hand Smoke Exposure: No Substance Use Type: Marijuana Current occupational status: retired Cognitive needs: Yes Hearing needs: No Vision needs: Yes (wear glasses) Questionnaire Medicare Wellness Checkup What [age]?: 65-71 What gender do you identify with?: female During the past 4 weeks, how much have you been bothered by emotional problems such as feeling anxious, depressed, irritable, sad or downhearted, and blue?: n ot at all During the past 4 weeks, has your physical & emotional health limited your social activities with family, friends, neighbors, or groups?: not at all During the past 4 weeks, how much bodily pain have you generally had?: moderate pain During the past 4 weeks, was someone available to help you if you needed & wanted help?: yes, as much as I wanted During the past 4 weeks, what was the hardest physical activity you could do for at least 2 minutes?: moderate Can you get to places out of walking distance without help? (For eg., can you travel alone on buses, taxis or drive your car?): Yes Can you go shopping for groceries or clothes without someone's help?: Yes Can you prepare your own meals?: Yes Can you do your housework without help?: Yes Because of any health problems, do you need the help of another person with your personal care needs such as eating, bathing, dressing or getting around the house?: No Can you handle your own money without help?: Yes During the past 4 weeks, how would you rate your health in general?: excellent During the past 4 weeks how have things been going for you?: very well; could hardly better Are you having difficulties driving your car?: no Do you always fasten your seat belt when you are in a car?: yes, usually During past 4 weeks, have you been bothered by the following: never: Falling or dizzy when standing up, Sexual problems?, Trouble eating well?, Teeth or denture problems?, Problems using the telephone? and Tiredness or fatigue? Have you fallen 2 or more times in the past year?: No Are you afraid of falling?: No Are you a smoker?: no During the past 4 weeks, how many drinks of wine, beer, or other alcoholic beverages did you have?: no alcohol at all Do you exercise for about 20 minutes 3 or more times a week?: yes, some of the time Have you been given information to help with the following?: no: Hazards in your house that might hurt you? and no: Keeping track of your medications? How often do you have trouble taking medicines the way you have been told to take them?: I always take medicine as prescribed How confident are you that you can control & manage most of your health problems?: very confident What is your race?: White Activity of Daily Living Bathing - sponge bath, tub bath or shower: receives no assistance (gets in/out by self, if usual bathing means Dressing - getting clothes from closets & drawers, including inner/outer garments & fasteners.: gets clothes & gets completely dressed without help Toileting - going to the 'toilet room' for urine/bowel elimination & cleaning self/arranging clothes: goes to toilet room, cleans self, arranges clothes without help Transfer: moves in & out of bed and chair without help (may use support object) Continence: controls urination/bowel movements completely by self Feeding: feeds self without help Total Score: 0 Information obtained from: patient Using telephone: independent Traveling: independent Shopping: independent Preparing meals: independent Housework: independent Taking medicine: independent Managing money: independent PHQ-9 Over the last 2 weeks, how often have you been bothered by any of the following problems? 1. Little interest or pleasure in doing things: not at all 2. Feeling down, depressed, or hopeless: not at all 3. Trouble falling or staying asleep, or sleeping too much: not at all 4. Feeling tired or having little energy: not at all 5. Poor appetite or overeating: not at all 6. Feeling bad about yourself - or that you are a failure or have let yourself or your family down: not at all 7. Trouble concentrating on things, such as reading the newspaper or watching television: not at all 8. Moving or speaking so slowly that other people could have noticed. Or the opposite - being so fidgety or restless that you have been moving around a lot more than usual: not at all 9. Thoughts that you would be better off or of hurting yourself in some way: not at all Total score: 0 Depression Screening Interpretation: Negative Depression Screening Done: Yes 79843 - PHQ-9 Billing: Yes Source: Developed by Drs. Jose Walter, Elizabeth Mina, Michael Jones and colleagues, with an educational rissa from [employer]. Physical Exam Vital Signs: Last Vital Signs Temp 97.8 F 07/07/25 14:29 Pulse 78 07/07/25 14:29 Resp 20 07/07/25 14:29 BP 130/80 07/07/25 14:29 Pulse Ox 98 07/07/25 14:29 Oxygen Delivery Method Room Air 07/07/25 14:29 BMI result Body Mass Index 22.9 Office Procedures EKG [id number], Complete Vision Screening Right Eye: 20/25 Left Eye: 20/40 Bilateral: 20/25 Color: Pass Corrected: Pass Steropsis: Pass Overall Vision Screening Results: Pass 40300 - Vision Screening Results Reviewed Results Reviewed: 06/13/25 LDL 110, ^ microalb otherwise WNL Assessment & Plan Assessment & Plan (1) Encounter for subsequent annual wellness visit (AWV) in Medicare patient: Onset Date: ~07/07/25 Code(s): Z00.00 - Encounter for general adult medical examination without abnormal findings (2) Intermittent pain and swelling of hand: Code(s): M79.643 - Pain in unspecified hand; M79.89 - Other specified soft tissue disorders (3) Skin rash: Code(s): R21 - Rash and other nonspecific skin eruption (4) Menopause: Code(s): Z78.0 - Asymptomatic menopausal state (5) Family history of colon cancer in mother: Code(s): Z80.0 - Family history of malignant neoplasm of digestive organs (6) Decreased hearing of both ears: Code(s): H91.93 - Unspecified hearing loss, bilateral (7) Eczema: Code(s): L30.9 - Dermatitis, unspecified (8) Psoriasis: Code(s): L40.9 - Psoriasis, unspecified (9) Influenza vaccination declined: Code(s): Z28.21 - Immunization not carried out because of patient refusal (10) Tetanus, diphtheria, and acellular pertussis (Tdap) vaccination declined: Code(s): Z28.21 - Immunization not carried out because of patient refusal (11) Pneumococcal vaccination declined: Code(s): Z28.21 - Immunization not carried out because of patient refusal (12) HLD (hyperlipidemia): Code(s): E78.5 - Hyperlipidemia, unspecified (13) Chronic GERD: Code(s): K21.9 - Gastro-esophageal reflux disease without esophagitis (14) Microalbuminuria: Code(s): R80.9 - Proteinuria, unspecified (15) HSV-2 infection: Code(s): B00.9 - Herpesviral infection, unspecified (16) Polyarthralgia: Code(s): M25.50 - Pain in unspecified joint (17) COPD (chronic obstructive pulmonary disease): Code(s): J44.9 - Chronic obstructive pulmonary disease, unspecified Qualifiers: COPD type: emphysema Emphysema type: panlobular Qualified Code(s): J 43.1 - Panlobular emphysema (18) Former smoker: Code(s): Z87.891 - Personal history of nicotine dependence Plan . Orders: Orders 2 Complete Blood Count no Diff 1 Year Z00.00 - Encounter for general adult medical examination without abnormal findings TSH reflex Free T4 1 Year Z00.00 - Encounter for general adult medical examination without abnormal findings XR DEXA axial skeleton Today Z13.820 - Encounter for screening for osteoporosis, Z78.0 - Asymptomatic menopausal state Comprehensive Met. Panel 1 Year Z00.00 - Encounter for general adult medical examination without abnormal findings Lipid Panel 1 Year Z00.00 - Encounter for general adult medical examination without abnormal findings Microalbumin, Random (w Creat) 1 Year Z00.00 - Encounter for general adult medical examination without abnormal findings Vitamin B12 and Folate 1 Year Z00.00 - Encounter for general adult medical examination without abnormal findings Vitamin D 25-OH Total 1 Year Z00.00 - Encounter for general adult medical examination without abnormal findings Referrals 2 Dermatology Referral L30.9 - Dermatitis, unspecified, L40.9 - Psoriasis, unspecified, R21 - Rash and other nonspecific skin eruption Hand Surgery Referral M79.643 - Pain in unspecified hand, M79.89 - Other specified soft tissue disorders Audiology Referral H91.93 - Unspecified hearing loss, bilateral Medications: New 2 celecoxib (Celebrex) 200 mg PO BID PRN 60 caps 2RF pain Discontinued 2 budesonide-formoterol 160-4.5 mcg/actuation (Symbicort) Discontinued Reason: Patient Refused 2 puffs inhalation BID 10.2 grams 12RF umeclidinium 62.5 mcg/actuation (Incruse Ellipta) Discontinued Reason: Patient Refused 1 inh inhalation BEDTIME 30 ea 12RF meloxicam Discontinued Reason: Doctor's Order 7.5 mg PO DAILY 90 tabs 2RF Patient Instructions: Health screenings for women You should visit your health care provider from time to time, even if you are healthy. The purpose of these visits is to: Screen for medical issues Assess your risk for future medical problems Encourage a healthy lifestyle Update vaccinations and other preventive care services Help you get to know your provider in case of an illness Information Even if you feel fine, you should still see your provider for regular checkups. These visits can help you avoid problems in the future. For example, the only way to find out if you have high blood pressure is to have it checked regularly. High blood sugar and high cholesterol levels also may not have any symptoms in the early stages. A simple blood test can check for these conditions. There are specific times when you should see your provider or receive specific health screenings. The [place] Preventive Services Task Force publishes a list of recommended screenings. Below are screening guidelines for women ages 18 to 39. BLOOD PRESSURE SCREENING Your blood pressure should be checked at least once every 3 to 5 years if: Your blood pressure is in the normal range (top number less than 120 mm Hg and bottom number less than 80 mm Hg) You don't have risk factors for high blood pressure Ask your provider if you need your blood pressure checked more often if: The top number is 120 to 129 mm Hg or the bottom number is 70 to 79 mm Hg You have diabetes, heart disease, kidney problems, are overweight, or have certain other health conditions You have a first-degree relative with high blood pressure You are Black You had high blood pressure during a If the top number is 130 mm Hg or greater or the bottom number is 80 mm Hg or greater, this is considered stage 1 hypertension. Schedule an appointment with your provider to learn how you can reduce your blood pressure. Watch for blood pressure screenings in your area. Ask your provider if you can stop in to have your blood pressure checked. BREAST CANCER SCREENING Experts do not agree about the benefits of breast self-exams in finding breast cancer or saving lives. Talk to your provider about what is best for you. A screening mammogram is not recommended for most women under age 40. Your provider may discuss and recommend mammograms, MRI scans, or ultrasounds if you have an increased risk for breast cancer, such as: A mother or sister who had breast cancer at a young age (most often starting screening earlier than the age the close relative was diagnosed) You carry a high-risk genetic marker CERVICAL CANCER SCREENING Cervical cancer screening should start at age 21 years unless your provider advises otherwise. After the first test: Women ages 21 through 29 should have a Pap test every 3 years. Exoprts do not agree on whether HPV testing is recommended for this age group. Women ages 30 through 65 should be screened with either a Pap test every 3 years or the HPV test every 5 years or both tests every 5 years (called cotesting ). Women who have been treated for precancer (cervical dysplasia) should continue to have Pap tests for 20 years after treatment or until age 65, whichever is longer. If you have had your uterus and cervix removed (total hysterectomy), and you have not been diagnosed with cervical cancer or precancer (high grade cervical neoplasia), you do not need cervical cancer screening. CHOLESTEROL SCREENING Cholesterol screening should begin at: Age 45 for women with no known risk factors for coronary heart disease Age 20 for women with known risk factors for coronary heart disease Repeat cholesterol screening should take place: Every 5 years for women with normal cholesterol levels More often if changes occur in lifestyle (including weight gain and diet) More often if you have diabetes, heart disease, kidney problems, or certain other conditions DIABETES SCREENING You should be screened for diabetes starting at age 35 and then repeated every 3 years if you have no risk factors for diabetes. Screening may need to start earlier and be repeated more often if you have other risk factors for diabetes, such as: You have a first degree relative with diabetes. You are overweight or have obesity. You have high blood pressure, prediabetes, or a history of heart disease. Screening for diabetes should be done if you are planning to become and you are overweight and have other risk factors such as high blood pressure. DENTAL EXAM Go to the dentist once or twice every year for an exam and cleaning. Your dentist will evaluate if you need more frequent visits. EYE EXAM Have an eye exam every 5 to 10 years before age 40. If you have vision problems, have an eye exam every 2 years or more often if recommended by your provider. You should have an eye exam that includes an examination of your retina (back of your eye) at least every year if you have diabetes. IMMUNIZATIONS Commonly needed vaccines include: Flu shot: get one every year. COVID-19 vaccine: ask your provider what is best for you. Tetanus-diphtheria and acellular pertussis (Tdap) vaccine: have one at or after age 19 as one of your tetanus-diphtheria vaccines if you did not receive it as an adolescent. Tetanus-diphtheria: have a booster (or Tdap) every 10 years. Varicella vaccine: receive 2 doses if you never had chickenpox or the varicella vaccine. Hepatitis B vaccine: receive 2, 3, or 4 doses, depending on your exact circumstances. Measles, mumps, and rubella (MMR) vaccine: receive 1 to 2 doses if you are not already immune to MMR. Your provider can tell you if you are immune. Ask your provider about the human papillomavirus (HPV) vaccine if: You have not received the HPV vaccine in the past You have not completed the full vaccine series (you should catch up on this shot) Ask your provider if you should receive other immunizations if you have certain health problems that increase your risk for some diseases such as pneumonia. INFECTIOUS DISEASE SCREENING Women who are sexually active should be screened for chlamydia and gonorrhea up until age 25. Women 25 years and older should be screened for chlamydia and gonorrhea if at high risk. Screening for hepatitis C: All adults ages 18 to 79 should get a one-time test for hepatitis C. people should be screened at every . Screening for human immunodeficiency virus (HIV): All people ages 15 to 65 should get a one-time test for HIV. Depending on your lifestyle and medical history, you may also need to be screened for infections such as syphilis and HIV, as well as other infections. PHYSICAL EXAM All adults should visit their provider from time to time, even if they are healthy. The purpose of these visits is to: Screen for disease Assess your risk of future medical problems Encourage a healthy lifestyle Update your vaccinations and other preventive care services Maintain a relationship with a provider in case of an illness Your height, weight, and BMI should be checked at every exam. During your exam, your provider may ask you about: Depression and anxiety Diet and exercise Alcohol and tobacco use Safety issues, such as using seat belts, smoke detectors, and intimate partner violence Your medicines and risk for interactions SKIN SELF-EXAM Your provider may check your skin for signs of skin cancer, especially if you're at high risk, such as if you: Have had skin cancer before Have close relatives with skin cancer Have a weakened immune system OTHER SCREENING Talk with your provider about colon cancer screening if you have a strong family history of colon cancer or polyps, or if you have had inflammatory bowel disease or polyps yourself. Routine bone density screening of women under 40 is not recommended. Quality Reporting (2019) Adult ([facility] 138/11/09/68) Smoking risk assessment performed?: Yes Patient Tobacco Use Status: Never used Tobacco Depression screening performed: Yes Screen Results: Yes Negative screen Systolic BP not done?: No Diastolic BP not done?: No BMI screening not done: No Sexual Activity Screening ([facility] 153) Sexually active?: Yes Immunizations ([facility] 147, 117) Annual Influenza Vaccine: Yes Measles Antibody Test: No Mumps Antibody Test: No Rubella Antibody Test: No Varicella Antibody Test: No Anti Hepatitis A IgG Antigen test: No Anti Hepatitis B Virus Surface Ab test: No Fall Risk Screening ([facility] 139) Last assessed Fall Risk: 07/07/25 Fall risk assessment: No Falls in past year Dementia Assessment ([facility] 149) Cognitive assessment recorded: Yes Assessment of cognition with standardized tool: Yes Depression/Bipolar (159/160/161/177) PHQ-9: Total score: 0 Ophthalmol:Cataracts Visual Acuity (133) Visual acuity exam performed: Yes (see results) Coding Level of Care Code Medicare Subsequent (G0439) Est Pt Level 4 (25575) Diagnoses Encounter for subsequent annual wellness visit (AWV) in Medicare patient Z00.00 Intermittent pain and swelling of hand M79.643; M79.89 Skin rash R21 Menopause Z78.0 Family history of colon cancer in mother Z80.0 Decreased hearing of both ears H91.93 Eczema L30.9 Psoriasis L40.9 Influenza vaccination declined Z28.21 Tetanus, diphtheria, and acellular pertussis (Tdap) vaccination declined Z28.21 Pneumococcal vaccination declined Z28.21 HLD (hyperlipidemia) E78.5 Chronic GERD K21.9 Microalbuminuria R80.9 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 Polyarthralgia M25.50 Panlobular emphysema J43.1 COPD type: emphysema Emphysema type: panlobular Former smoker Z87.891 CPT Codes Advance Care Planning - Time spent: 16-45 minutes ([id number]) EKG - CPT: 89979-[id number], Complete ([id number]) Vision Screening - Vision Screenin - Vision Screening ([id number]) Additional Codes PHQ-9 - 42793 - PHQ-9 Billing: Yes ([id number]) Advance Care Planning Advance Care Planning discussion: Exists, not on file Date of discussion: 07/07/25 Who was present: self Forms completed: Health Care Proxy, MOLST and Living will Time spent: 16-45 minutes Actual minutes spent: 16
--- OUTSIDE RECORDS SUMMARY | 2025-07-07 17:11 | XMS_ITS | Clinical Summary ---
Author Organization [employer] Address [address] [place] [address] Care Team Providers Care Security Operations Center Analyst Name Role Phone Ann Marie Gallego Unavailable [...] Encounters Date Type Department Care Team Description 06/25/2025 10:00 AM EDT Office Visit [facility] [address] [place] [address] Del Velasquez, OD Peripheral drusen of both eyes (Primary Dx); PVD (posterior vitreous detachment), left eye 06/19/2025 9:20 AM EDT Office Visit [facility] D[facility] [address] [place] [address] Belen Guardado Encounter for dental examination (Primary Dx); Disturbances of tooth formation 06/03/2025 11:30 AM EDT Office Visit [facility] [address] [place] [address] Del Velasquez, OD PVD (posterior vitreous detachment), left eye (Primary Dx); Peripheral drusen of both eyes; Hypertensive retinopathy of both eyes 06/03/2025 Travel 05/28/2025 10:20 AM EDT Office Visit [facility] [address] [place] [id number] Binh Childress Jr., DMD from Last 3 [...] Care Team (Late st Contact Info) Description 12/24/2025 9:20 AM EDT Office Visit [facility] [address] [place] [id number] Belen Guardado Health Maintenance Due Date Last [...] 09/27/2017 Mammogram 03/06/2021 03/06/2019 COVID-19 Vaccine ( season) 2025 Influenza Vaccine (#1) 2025 8, [...] Final Result * MAMMOGRAM DIGITAL WINIFRED SCREENING: [facility] (03/06/2019 12:00 AM EDT) Anatomical Region Laterality Modality Breast Bilateral Mammography 03/06/2019 Narrative 03/06/2019 12:00 AM EDT Refer to Fovea for result details Legacy Procedure: MAMMOGRAM DIGITAL WINIFRED SCREENING: [facility] Procedure Note Provider, Rolan, - 01/12/2023 Refer to Fovea for result details Legacy Procedure: MAMMOGRAM DIGITAL WINIFRED SCREENING: [facility] Historical Provider MD ROLON BI PROCEDURES Final R esult from Last 3 Months or Most Recently Relevant to Health Maintenance Insurance [facility] DUAL COMPLETE [facility]ICA[place] STAND ADULT DENTAL - [facility]SN FULL (MEDICAID) [facility] DUAL COMPLETE [facility] STANDARD Care Teams Security Operations Center Analyst Relationship Specialty Start Date End Date Ann Marie Gallego [facility] Navigator 10/15/24 TONY GARCIA [address] [place] [address] [phone] Primary Care Provider 06/03/25
== END 2025-07-07 15:04 | disposition home or self-care (01) ==
LOC: HO.HMCFM 13:51
PROVIDERS: PCP Nurse Practitioner Family; Visit Provider Nurse Practitioner Family
DX: Z00.00 Encounter for general adult medical examination without abnormal findings (principal); M79.641 Pain in right hand; M79.642 Pain in left hand; J43.1 Panlobular emphysema; M79.89 Other specified soft tissue disorders; R21 Rash and other nonspecific skin eruption; Z78.0 Asymptomatic menopausal state; Z80.0 Family history of malignant neoplasm of digestive organs; H91.93 Unspecified hearing loss, bilateral; L30.9 Dermatitis, unspecified; L40.9 Psoriasis, unspecified; Z28.21 Immunization not carried out because of patient refusal

== ENCOUNTER → 2025-07-07 13:49 | Outpatient (BNVA) | payer OTHER, SELFPAY | PROVIDERS: PCP Nurse Practitioner Family; Visit Provider Nurse Practitioner Family | DX: Z00.00 Encounter for general adult medical examination without abnormal findings (principal); K21.9 Gastro-esophageal reflux disease without esophagitis; N64.4 Mastodynia; M19.042 Primary osteoarthritis, left hand; M19.041 Primary osteoarthritis, right hand; B00.9 Herpesviral infection, unspecified; L30.9 Dermatitis, unspecified; L40.9 Psoriasis, unspecified; J44.9 Chronic obstructive pulmonary disease, unspecified; M79.89 Other specified soft tissue disorders; E78.5 Hyperlipidemia, unspecified; R80.9 Proteinuria, unspecified; J43.1 Panlobular emphysema; Z87.891 Personal history of nicotine dependence; Z78.0 Asymptomatic menopausal state; Z80.0 Family history of malignant neoplasm of digestive organs; Z28.21 Immunization not carried out because of patient refusal | CPT/HCPCS: 96127; 99212; 99497 ==